=== PATIENT | female | born 1955 | race Caucasian/White ===

== ENCOUNTER → 2016-12-03 | Outpatient (CLI) | payer OTHER ==
[~2016-12-03] MED LIST: CALCIUM PO; CELEBREX200 MG PO; KLONOPIN1 M2 PO; KLONOPIN2 MG PO; LASIX20 MG PO; LISINOPRIL20 MG PO; LOPRESSOR50 MG PO; LOTREL 5/201 CAPSUL1 PO; LOVENOX40 MG/0.4 SC; NIZORAL 2% CREA15 GM PO; OXYCODONE5 MG PO; PRAVACHOL20 MG PO; PREVACID30 MG PO; PROVERA,CYCRIN10 MG PO; ULTRAM50 MG PO; VICODIN 5-3001 EACH PO; VITA PO
== END | disposition home or self-care (01) ==
DX: M16.11 Unilateral primary osteoarthritis, right hip (principal); R26.2 Difficulty in walking, not elsewhere classified; M62.81 Muscle weakness (generalized); M25.651 Stiffness of right hip, not elsewhere classified
CPT/HCPCS: 97110 GP; 97150 GO; 97161 GP; 97165 GO

== ENCOUNTER 2017-01-20 09:01 | Inpatient (IN) | payer OTHER ==
[~2017-01-20] VITALS: Ht 156.2 cm; Wt 128.5 kg
[~2017-01-20 09:01] MED LIST changes: +CALCIUM 600 MG1 EACH PO; +COLACE100 MG PO; +FOLIC ACID1 MG PO; +HUMIRA CRO40 MG/0.8 SC; +IRON325 MG PO; +LORCET 5-325 M1 EACH PO; +METHOTREXATE2.5 MG PO; +RAYOS5 MG PO
[2017-01-20 09:37] VITALS: BP 171/88
[2017-01-20 15:00] LABS: HEMATOCRIT 43.7 % (36.0-46.0); MCH 30.6 PG (29.0-34.0); MCHC 31.6 G/DL (30.0-36.0); MCV 96.9 FL (83-99); MEAN PLAT.VOLUME 9.3 uM^3 (9.5-12.4); PLATELET COUNT 249 K/uL (156-360); RBC DIS.WIDTH-CV 15.2 % (11.8-14.6); RBC DIS.WIDTH-SD 53.4 % (39-53); RED BLOOD COUNT 4.51 M/uL (3.80-5.20); WHITE BLOOD COUNT 8.5 K/uL (4.1-10.2)
[2017-01-20 16:13] VITALS: BP 119/70
[2017-01-20 20:01] VITALS: BP 125/79
[2017-01-20 21:24] VITALS: BP 141/71
[2017-01-21 00:02] VITALS: BP 122/66
[2017-01-21 04:25] VITALS: BP 121/66
[2017-01-21 06:15] LABS: ANION GAP 6 MEQ/L (2-14); CHLORIDE 105 MEQ/L (99-109); GFR ESTIMATE (CALCULATED) > 59 mL/min/; GLUCOSE 103 mg/dL (70-99); POTASSIUM 3.7 MEQ/L (3.7-5.4); SAMPLE HEMOLYSIS CHECK 0; SAMPLE ICTERIC CHECK 0; SAMPLE LIPEMIA CHECK 0; SODIUM 137 MEQ/L (136-147); UREA NITROGEN (BUN) 12 mg/dL (9-23)
[2017-01-21 08:00] VITALS: BP 162/77
[2017-01-21 12:04] VITALS: BP 120/67
[2017-01-21 13:13] LABS: HEMATOCRIT 39.5 % (36.0-46.0)
[2017-01-21 16:00] VITALS: BP 112/60
[2017-01-21 20:30] VITALS: BP 126/60
[2017-01-22] VITALS (7 sets, daily range): BP systolic 114–135; BP diastolic 57–68
[2017-01-22 05:27] LABS: HEMATOCRIT 34.9 % (36.0-46.0); MCV 95.4 FL (83-99)
[2017-01-22 05:50] LABS: ANION GAP 4 MEQ/L (2-14); CHLORIDE 106 MEQ/L (99-109); GFR ESTIMATE (CALCULATED) > 59 mL/min/; GLUCOSE 98 mg/dL (70-99); POTASSIUM 3.8 MEQ/L (3.7-5.4); SAMPLE HEMOLYSIS CHECK 0; SAMPLE ICTERIC CHECK 0; SAMPLE LIPEMIA CHECK 0; SODIUM 139 MEQ/L (136-147); UREA NITROGEN (BUN) 13 mg/dL (9-23)
[2017-01-22] MEDS ORDERED: LOVENOX40 MG/0.4 SC (08:18)
[2017-01-22] MEDS ORDERED: ENDOCET 5-3251 EACH PO (08:19)
[2017-01-23 04:25] VITALS: BP 108/59
[2017-01-23 08:30] VITALS: BP 130/67
== END 2017-01-23 11:20 | disposition home health service (06) | DRG 470 ==
LOC: 2SOUTH 09:01 → 3WEST 15:59 → 2SOUTH 16:01 → 3WEST 01-23 11:20
PROVIDERS: Orthopaedic Surgery; Physician Assistant
PROC: 0SR90JA Replacement of Right Hip Joint with Synthetic Substitute, Uncemented, Open Approach (ICD-10-PCS; principal; 2017-01-20)
DX: M16.11 Unilateral primary osteoarthritis, right hip (principal); M06.9 Rheumatoid arthritis, unspecified; M81.0 Age-related osteoporosis without current pathological fracture; I10 Essential (primary) hypertension; E78.5 Hyperlipidemia, unspecified; K21.9 Gastro-esophageal reflux disease without esophagitis; G47.30 Sleep apnea, unspecified
CPT/HCPCS: 73501; 73522; 80048; 85014; 85018; 85027; 94660; J0690; J1170; J1650; J2175; J2250; J2405; J7030; J7050; J7512; J8610

== ENCOUNTER 2017-06-24 10:52 | Day surgery (SDC) | payer OTHER ==
[~2017-06-24] VITALS: Ht 156.2 cm; Wt 130.4 kg
[~2017-06-24 10:52] MED LIST changes: +ENDOCET 5-3251 EACH PO; +LEXAPRO10 MG PO; +STOOL SOFTENER250 MG PO
== END 2017-06-24 12:33 | disposition home or self-care (01) ==
LOC: PAIN 10:52 → SDC 11:30 → PAIN 11:30
DX: M47.26 Other spondylosis with radiculopathy, lumbar region (principal); M48.06 Spinal stenosis, lumbar region; G89.4 Chronic pain syndrome; K21.9 Gastro-esophageal reflux disease without esophagitis; E78.5 Hyperlipidemia, unspecified; I10 Essential (primary) hypertension; M06.9 Rheumatoid arthritis, unspecified; G47.30 Sleep apnea, unspecified; E66.01 Morbid (severe) obesity due to excess calories; Z68.43 Body mass index [BMI] 50.0-59.9, adult; Z79.891 Long term (current) use of opiate analgesic
CPT/HCPCS: J1100; J2250; J3010

== ENCOUNTER 2017-07-28 07:21 | Day surgery (SDC) | payer OTHER ==
[~2017-07-28] VITALS: Ht 156.2 cm; Wt 130.4 kg
== END 2017-07-28 09:16 | disposition home or self-care (01) ==
LOC: PAIN 07:21 → SDC 08:00 → PAIN 08:00
DX: M47.26 Other spondylosis with radiculopathy, lumbar region (principal); M48.06 Spinal stenosis, lumbar region; G89.4 Chronic pain syndrome; I10 Essential (primary) hypertension; E78.5 Hyperlipidemia, unspecified; M06.9 Rheumatoid arthritis, unspecified; G47.30 Sleep apnea, unspecified; E66.01 Morbid (severe) obesity due to excess calories; Z68.43 Body mass index [BMI] 50.0-59.9, adult; Z79.891 Long term (current) use of opiate analgesic; K21.9 Gastro-esophageal reflux disease without esophagitis
CPT/HCPCS: J1100; J2250; J3010

== ENCOUNTER 2017-10-23 14:21 | Day surgery (SDC) | payer OTHER ==
[~2017-10-23] VITALS: Ht 156.2 cm; Wt 103.8 kg
[~2017-10-23 14:21] MED LIST changes: +OXYCODONE-ACET1 EACH PO
[2017-10-23] MEDS ORDERED: METHOTREXATE2.5 MG PO (14:42)
== END 2017-10-23 16:08 | disposition home or self-care (01) ==
LOC: PAIN 14:21 → SDC 15:00 → PAIN 15:00
DX: M47.26 Other spondylosis with radiculopathy, lumbar region (principal); M54.5 Low back pain; G89.29 Other chronic pain; M48.061 Spinal stenosis, lumbar region without neurogenic claudication; K21.9 Gastro-esophageal reflux disease without esophagitis; E78.5 Hyperlipidemia, unspecified; I10 Essential (primary) hypertension; M06.9 Rheumatoid arthritis, unspecified; G47.30 Sleep apnea, unspecified; Z79.891 Long term (current) use of opiate analgesic
CPT/HCPCS: J1030; J2250; J3010; S0020

== ENCOUNTER → 2017-11-26 | Outpatient (CLI) | payer OTHER | END | disposition home or self-care (01) | LOC: RES 08:23 | DX: R06.02 Shortness of breath (principal) | CPT/HCPCS: 94070; 94726; 94729 ==

== ENCOUNTER 2017-12-16 08:05 | Day surgery (SDC) | payer OTHER ==
[~2017-12-16] VITALS: Ht 156.2 cm; Wt 133.8 kg
== END 2017-12-16 09:55 | disposition home or self-care (01) ==
LOC: PAIN 08:05 → SDC 08:45 → PAIN 09:55
DX: M47.816 Spondylosis without myelopathy or radiculopathy, lumbar region (principal); M54.16 Radiculopathy, lumbar region; G89.4 Chronic pain syndrome; M06.9 Rheumatoid arthritis, unspecified; Z79.899 Other long term (current) drug therapy; M87.051 Idiopathic aseptic necrosis of right femur; Z96.649 Presence of unspecified artificial hip joint; I10 Essential (primary) hypertension; E78.5 Hyperlipidemia, unspecified; K21.9 Gastro-esophageal reflux disease without esophagitis; G47.30 Sleep apnea, unspecified; Z88.5 Allergy status to narcotic agent; Z88.8 Allergy status to other drugs, medicaments and biological substances
CPT/HCPCS: J1030; J2250; J3010; S0020

== ENCOUNTER 2017-12-23 08:18 | Day surgery (SDC) | payer OTHER ==
[~2017-12-23] VITALS: Ht 156.2 cm; Wt 133.8 kg
== END 2017-12-23 10:07 | disposition home or self-care (01) ==
LOC: PAIN 08:18 → SDC 08:45 → PAIN 10:07
PROC: BR161ZZ Fluoroscopy of Lumbar Facet Joint(s) using Low Osmolar Contrast (ICD-10-PCS; principal; 2017-12-23)
PROC: 3E0T3TZ Introduction of Destructive Agent into Peripheral Nerves and Plexi, Percutaneous Approach (ICD-10-PCS; principal; 2017-12-23)
DX: M47.816 Spondylosis without myelopathy or radiculopathy, lumbar region (principal); M54.16 Radiculopathy, lumbar region; M48.061 Spinal stenosis, lumbar region without neurogenic claudication; M06.9 Rheumatoid arthritis, unspecified; G89.29 Other chronic pain; E78.5 Hyperlipidemia, unspecified; I10 Essential (primary) hypertension; K21.9 Gastro-esophageal reflux disease without esophagitis; G47.30 Sleep apnea, unspecified; E66.01 Morbid (severe) obesity due to excess calories; Z68.43 Body mass index [BMI] 50.0-59.9, adult; Z79.891 Long term (current) use of opiate analgesic
CPT/HCPCS: J1030; J2250; J3010; S0020

== ENCOUNTER 2018-04-28 07:21 | Day surgery (SDC) | payer OTHER ==
[~2018-04-28] VITALS: Ht 156.2 cm; Wt 133.4 kg
[~2018-04-28 07:21] MED LIST changes: +PROLIA60 MG/1 ML SC
== END 2018-04-28 08:45 | disposition home or self-care (01) ==
LOC: PAIN 07:21 → SDC 08:00 → PAIN 08:45
DX: M54.16 Radiculopathy, lumbar region (principal); G89.4 Chronic pain syndrome; M47.816 Spondylosis without myelopathy or radiculopathy, lumbar region; M99.83 Other biomechanical lesions of lumbar region; M06.9 Rheumatoid arthritis, unspecified; Z88.8 Allergy status to other drugs, medicaments and biological substances
CPT/HCPCS: 93005; J1100; J2250

== ENCOUNTER 2018-05-26 08:49 | Day surgery (SDC) | payer OTHER ==
[~2018-05-26] VITALS: Ht 154.9 cm; Wt 138.8 kg
== END 2018-05-26 11:05 | disposition home or self-care (01) ==
LOC: PAIN 08:49 → SDC 09:30 → PAIN 11:05
DX: M54.16 Radiculopathy, lumbar region (principal); M47.816 Spondylosis without myelopathy or radiculopathy, lumbar region; M48.061 Spinal stenosis, lumbar region without neurogenic claudication; E78.5 Hyperlipidemia, unspecified; I10 Essential (primary) hypertension; G47.30 Sleep apnea, unspecified; K21.9 Gastro-esophageal reflux disease without esophagitis; M81.0 Age-related osteoporosis without current pathological fracture; Z79.891 Long term (current) use of opiate analgesic; E66.01 Morbid (severe) obesity due to excess calories; Z68.43 Body mass index [BMI] 50.0-59.9, adult; Z88.8 Allergy status to other drugs, medicaments and biological substances
CPT/HCPCS: J1100; J2250; J3010

== ENCOUNTER → 2018-06-15 | Outpatient (CLI) | payer OTHER ==
[~2018-06-15] VITALS: Ht 152.4 cm; Wt 138.8 kg
== END | disposition home or self-care (01) ==
LOC: AMB 13:23
DX: Z12.11 Encounter for screening for malignant neoplasm of colon (principal); K63.5 Polyp of colon; K64.8 Other hemorrhoids; K57.30 Diverticulosis of large intestine without perforation or abscess without bleeding; K21.9 Gastro-esophageal reflux disease without esophagitis; K29.70 Gastritis, unspecified, without bleeding; Z86.19 Personal history of other infectious and parasitic diseases; Z68.43 Body mass index [BMI] 50.0-59.9, adult; Z86.010 Personal history of colon polyps; M06.9 Rheumatoid arthritis, unspecified; M19.90 Unspecified osteoarthritis, unspecified site; Z79.52 Long term (current) use of systemic steroids; I10 Essential (primary) hypertension; G47.30 Sleep apnea, unspecified; M81.0 Age-related osteoporosis without current pathological fracture; Z88.6 Allergy status to analgesic agent; Z88.8 Allergy status to other drugs, medicaments and biological substances
CPT/HCPCS: 88305; 88342 TC

== ENCOUNTER 2018-06-23 07:20 | Day surgery (SDC) | payer OTHER ==
[~2018-06-23] VITALS: Ht 152.4 cm; Wt 138.9 kg
== END 2018-06-23 09:05 | disposition home or self-care (01) ==
LOC: PAIN 07:20 → SDC 08:00 → PAIN 09:05
PROC: 3E0R3BZ Introduction of Anesthetic Agent into Spinal Canal, Percutaneous Approach (ICD-10-PCS; principal; 2018-06-23)
PROC: 3E0R33Z Introduction of Anti-inflammatory into Spinal Canal, Percutaneous Approach (ICD-10-PCS; principal; 2018-06-23)
DX: M47.26 Other spondylosis with radiculopathy, lumbar region (principal); M48.061 Spinal stenosis, lumbar region without neurogenic claudication; M06.9 Rheumatoid arthritis, unspecified; G89.4 Chronic pain syndrome; K21.9 Gastro-esophageal reflux disease without esophagitis; E78.5 Hyperlipidemia, unspecified; I10 Essential (primary) hypertension; G47.30 Sleep apnea, unspecified; Z79.891 Long term (current) use of opiate analgesic; Z88.5 Allergy status to narcotic agent; Z88.8 Allergy status to other drugs, medicaments and biological substances
CPT/HCPCS: J1100; J2250; J3010